=== PATIENT | male | born 1955 | race Caucasian/White ===

== ENCOUNTER 2020-09-16 11:07 | Emergency (ER) | payer MEDICARE, SELFPAY ==
--- NOTE | ~2020-09-16 | XR_ITS ---
XR chest 2V 09/16/2020 12:06 Indication: Shortness of breath and chest pain Procedure: 2 view chest Comparison: No prior studies for comparison. Findings: Heart size normal. Small right pleural effusion. No focal pneumonia, edema or pneumothorax. There are degenerative changes of the shoulders, right greater than left. No acute osseous abnormali ty. Impression: 1: Small right pleural effusion. Reviewed, dictated and finalized at location B. Impression: 1: Small right pleural effusion.
--- NOTE | ~2020-09-16 | NM_ITS ---
EXAMINATION: NM pulmonary perfusion DATE: 09/16/2020 15:24 INDICATION: Shortness of breath. Chest pain. TECHNIQUE: 5.3 mCi Tc-99m MAA was administered intravenously for perfusion images. Scintigraphic damon ges of the chest were obtained. COMPARISON: Chest 2 views 09/16/20 FINDINGS: Perfusion images show small defects in the lower lobes. IMPRESSION: 1. Pulmonary embolism absent (low probability). Reviewed, dictated and finalized at location A.
[2020-09-16 11:15] VITALS: BP 139/89; PULSE 90; RESP 20; TEMP 37.1; O2SAT 99
--- NOTE | 2020-09-16 11:35 | ECG_ITS ---
Measurements Intervals [place] Rate: 83 P: [place]: 0 QRS: 80 QRSD: 154 T: 247 QT: 440 QTc: 519 Interpretive Statements SINUS RHYTHM LEFT BUNDLE BRANCH BLOCK ABNORMAL ECG Electronically Signed On 09-16-2020 12:07:54 CDT by Genaro Valdes D.O.
[2020-09-16 11:55] LABS: Basophils Percent Auto 1.3 % (0.0-1.0); Eosinophils Absolute Auto 0.37 K/mm3 (0.02-0.50); Eosinophils Percent Auto 4.9 % (1.0-6.0); Hematocrit 36.2 % (40.0-54.0); Hemoglobin 11.8 g/dL (14.0-18.0); Immature Granulocyte Absolute 0.02 K/mm3 (0.00-0.00); Immature Granulocyte Percent A 0.3 % (0.0-0.0); Lymphocytes Absolute Auto 1.39 K/mm3 (1.10-4.50); Lymphocytes Percent Auto 18.5 % (18.0-42.0); Mean Corpuscular HGB Conc 32.6 g/dL (32.0-36.0); Mean Corpuscular Hemoglobin 27.3 pg (27.0-31.0); Mean Corpuscular Volume 83.8 fL (78.0-102.0); Mean Platelet Volume 10.2 fl (8.7-11.0); Monocytes Absolute Auto 0.77 K/mm3 (0.10-0.90); Monocytes Percent Auto 10.2 % (2.0-11.0); Neutrophils Absolute Auto 4.9 K/mm3 (1.7-7.2); Neutrophils Percent Auto 64.8 % (50.0-70.0); Platelet Count Result 203 K/mm3 (150-420); Red Blood Count 4.32 M/mm3 (4.70-6.10); White Blood Count 7.5 K/mm3 (4.8-10.8)
[2020-09-16] MEDS: KETOROLAC 30 MG/ML VIAL (*BKC) IV PUSH (12:07)
[2020-09-16 12:10] LABS: Partial Thromboplastin Time 21.9 SEC (23.90-30.70)
[2020-09-16 12:17] LABS: Alanine Aminotransferase 91 U/L (16-63); Albumin Level 3.8 g/dL (3.4-5.0); Alkaline Phosphatase 85 U/L (46-116); Anion Gap 11 mmol/L (8-16); Aspartate Amino Transferase 47 U/L (15-37); Bilirubin,Total 0.6 mg/dL (0.00-1.00); Blood Urea Nitrogen 37 mg/dL (7-18); Calcium 8.3 mg/dL (8.5-10.1); Carbon Dioxide 24 mmol/L (21-32); Chloride 103 mmol/L (98-108); Creatine Kinase 433 U/L (39-308); Estimated Glomerular Filt Rate 48; Glucose 151 mg/dL (70-99); Lipase 119 U/L (73-393); NT Pro B Type Natriuretic Pept 7759 pg/mL (0-125); Osmolality Calculated 297 mOsm/kg (285-295); Sodium 138 mmol/L (136-145); Total Protein 6.9 g/dL (6.4-8.2)
[2020-09-16 12:18] LABS: D Dimer 0.58 mg/L (0.19-0.50)
[2020-09-16 12:19] LABS: Troponin I 37.5 ng/L (0.00-60.4)
[2020-09-16 12:27] VITALS: BP 140/75; PULSE 89; O2SAT 98
--- NOTE | 2020-09-16 13:34 | PC.NURSE ---
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
--- NOTE | 2020-09-16 14:40 | ED.EXTPRO ---
HPI - Extremity Problem General Chief complaint: Extremity Problem,Nontraumatic Stated complaint: arms hurting Source: patient Mode of arrival: ambulatory Limitations: no limitations History of Present Illness HPI Narrative: this is a 64-year-old gentleman from out of town that presents with bilateral arm pain distal and proximal radiating to his back with currently no shortness of breath no fever chills no chest pain, the patient is here from [place] and does not have his medication list with him but states that he has a history of CHF and hypertension. There is no nausea vomiting no abdominal pain no diarrhea constipation no flank pain no headache, no blurry vision. Complaint: extremity pain Onset (ago): day(s) Pain Consistency: intermittent Location: upper extremity Severity scale (1-10): 5 Quality: aching Radiation: proximal Relieving factors: immobilization Exacerbating factors: nothing Associated symptoms: denies other symptoms Related Data Home Medications Medication Instructions Recorded Confirmed Unable to Obtain Home Medications 09/16/20 09/16/20 Allergies Allergy/AdvReac Type Severity Reaction Status Date / Time erythromycin base Allergy Hives Verified 09/16/20 11:41 iodine Allergy Hives Verified 09/16/20 11:41 Penicillins Allergy Hives Verified 09/16/20 11:41 Review of Systems Review of Systems: All systems reviewed & are unremarkable except as noted in HPI and below PMFSH Past Medical History Medical History CHF (congestive heart failure) Exam Const: General: no acute distress HENMT: Head: normal to inspection Eyes: Conjunctivae: conjunctivae normal Pupils: Equal, round and reactive pupils present EOM: EOMs intact bilaterally Neck: Neck: normal visual inspection, no lymphadenopathy and no meningeal signs Chest: Chest palpation & inspection: normal inspection of the chest Resp: Effort & Inspection: normal respiratory effort Auscultation: clear to auscultation bilaterally Cardio: Rate: regular rate Rhythm: regular rhythm GI: GI Palp: Yes Soft to palpation Back/Spine/Pelvis: Back: no CVA tenderness Neuro: General: patient oriented x3, moves all extremities and no meningeal signs Extrem: General: normal to inspection Psych: Appearance: grossly normal Mental Status: mental status grossly normal Affect: normal affect Course Course Emergency Course: patient more comfortable after receiving of IV Toradol and IV fluids currently not short of breath reviewed lab findings and chest x-ray with patient patient did have elevated D-dimer and is allergic to iodine and performing a perfusion lung scan. Vital Signs Vital signs: Vital Signs Temperature 37.1 C 09/16/20 11:15 Pulse Rate 90 09/16/20 11:15 Respiratory Rate 09/16/20 11:15 Blood Pressure 139/89 09/16/20 11:15 Pulse Oximetry 99 09/16/20 11:15 Temperature 37.1 C 09/16/20 11:15 Pulse Rate 89 09/16/20 12:27 Respiratory Rate 09/16/20 11:15 Blood Pressure 140/75 09/16/20 12:27 Pulse Oximetry 98 09/16/20 12:27 MDM - Extremity (Nontraumatic) Lab Data Result diagrams: 09/16/20 11:50 09/16/20 11:50 Labs: Lab Results 09/16/20 09/16/20 09/16/20 Range/Units 11:50 11:50 11:50 WBC 7.5 (4.8-10.8) K/mm3 RBC 4.32 L (4.70-6.10) M/mm3 Hgb 11.8 L (14.0-18.0) g/dL Hct 36.2 L (40.0-54.0) % MCV 83.8 (78.0-102.0) fL MCH 27.3 (27.0-31.0) pg MCHC 32.6 (32.0-36.0) g/dL RDW 16.0 H (11.6-14.4) % Plt Count 203 (150-420) K/mm3 MPV 10.2 (8.7-11.0) fl Immature Gran % (Auto) 0.3 H (0.0-0.0) % Neut % (Auto) 64.8 (50.0-70.0) % Lymph % (Auto) 18.5 (18.0-42.0) % [place] % (Auto) 10.2 (2.0-11.0) % Eos % (Auto) 4.9 (1.0-6.0) % Baso % (Auto) 1.3 H (0.0-1.0) % Lymph # (Auto) 1.39 (1.10-4.50) K/mm3 [place] # (Auto) 0.77 (0.10-0.90) K/mm3
[2020-09-16 16:03] VITALS: PULSE 68; O2SAT 95
== END 2020-09-16 16:05 | disposition home or self-care (01) ==
PROVIDERS: Emergency Provider Emergency Medicine
DX: S46.912A Strain of unspecified muscle, fascia and tendon at shoulder and upper arm level, left arm, initial encounter (principal); S46.911A Strain of unspecified muscle, fascia and tendon at shoulder and upper arm level, right arm, initial encounter; I50.9 Heart failure, unspecified
CPT/HCPCS: 36415; 71046; 78580; 80053; 82550; 83690; 83880; 84484; 85025; 85380; 85610; 85730; 93005; 96374; 99283; 99284; A9540; J1885